=== PATIENT | male | born 1975 | race African-American/Black ===

== ENCOUNTER 2016-09-16 16:37 | Observation (INO) | payer OTHER ==
[~2016-09-16] VITALS: Ht 182.9 cm; Wt 93.4 kg
--- NOTE | ~2016-09-16 | CT4 ---
[facility]. [facility] A Service of [facility] RADIOLOGY TEXT RESULTS PATIENT: MAKENNA GALEAS LOCATION: [facility] 303- : 73 UNIT #: [id number] AGE: [address]: XI WHITTAKER MD SEX: M ORDER DR: [id number] [address] [address] [id number] E MR#: [id number] Acc #: [id number] NAME: MAKENNA GALEAS : 1975 SEX: M STUDY DATE/TIME: 09/16/2016 18:07 UNIT: SED ROOM: STUDY DESCRIPTION: CT Abd and Pelv Wo Cont Attending Physician: Higinio Byers M.D. Ordering Physician: Higinio Byers M.D. Primary Care Physician: No Primary Care Physician MEDICAL IMAGING REPORT This report is preliminary unless electronic signature is present. EXAM CT abdomen and pelvis. INDICATION Left-sided chest pain and left upper quadrant abdominal pain. Left lower quadrant pain. Nausea. TECHNIQUE CT of the abdomen and pelvis without contrast. Coronal and sagittal reconstructions were obtained. This CT exam was performed with one or more of the following radiation dose reduction techniques: automatic exposure control, adjustment of mA and/or kV according to patient size, and iterative reconstruction. COMPARISON None available. FINDINGS There is a small 1 mm calculus in the lower pole right kidney. No hydronephrosis. Noncontrast evaluation of the remaining solid abdominal organs is within normal. Gallbladder is not distended. The small bowel is not dilated. The appendix is normal. There is focal inflammation of the distal descending colon and an area of mild diverticulosis. This is indicative of diverticulitis. No abscess or perforation. The abdominal aorta is normal in caliber. There is a small umbilical hernia. PELVIS: No pelvic mass. Bladder is unremarkable. No enlarged pelvic or STS. [facility] A Service of [facility] RADIOLOGY TEXT RESULTS PATIENT: MAKENNA GALEAS LOCATION: [facility] 303- : 73 UNIT #: [id number] AGE: [address]: XI WHITTAKER MD SEX: M ORDER DR: inguinal lymph nodes. No acute osseous abnormalities. IMPRESSION 1. Acute diverticulitis of the descending colon. No abscess or perforation. 2. Right nephrolithiasis. 3. Small umbilical hernia. Dictated by... Shiva Willis M.D. THIS IS AN ELECTRONICALLY VERIFIED REPORT Shiva Willis M.D. at 09/17/2016 7:50 PM KIMI/josé TD: 09/17/2016 18:00 JOB #: [id number] MEDICAL IMAGING REPORT Page 1 of 1
--- NOTE | ~2016-09-16 | EKG ---
PATIENT: MAKENNA GALEAS UNIT #: [id number] Ventricular Rate: 66 BPM Atrial Rate: 66 BPM P-R Interval: 144 ms QRS Duration: 94 ms Q-T Interval: 388 ms QTC Calculation(Bezet): 406 ms P [place]: 96 degrees Calculated R [place]: 78 degrees Calculated T [place]: 37 degrees Diagnosis Line: Sinus rhythm with Premature atrial complexes Diagnosis Line: Otherwise normal ECG Diagnosis Line: No previous ECGs available Diagnosis Line: Confirmed by NICK KEITH MD ([id number]) on Diagnosis Line: 09/18/2016 3:09:26 PM INTERPRETING MD: SAGAR LINARES
--- NOTE | ~2016-09-16 | HP ---
Unit #: [id number] #: [id number] Patient: MAKENNA GALEAS [id number] [facility]. [place], [place] [address] [id number] I MR#: [id number] NAME: MAKENNA GALEAS. ROOM: 303 Age: 41 Sex: M Admission Date: 09/16/2016 : 1975 Attending Physician: Agapito Mota M.D. Primary Care Physician: Primary Care Physician No HISTORY AND PHYSICAL CHIEF COMPLAINT Abdominal pain. DISCUSSION This is a 41-year-old gentleman with past medical history of dyslipidemia, many years ago, not on any cholesterol medication. He presented to [facility] emergency room with chief complaint of having abdominal pain which mainly described in the left lower quadrant pain which pain started day before yesterday. He described the pain as sharp, progressively over time it got worse, today, he had been throwing up four or five times with nausea and vomiting. But said that he had been having some constipation but no diarrhea, no blood in stool. On workup, he was found to be white count 21,000. CT scan showed acute diverticulitis of descending colon and hematuria, admitted here. He denies fever, chills, chest pain, or any other complaint. PAST MEDICAL HISTORY History of dyslipidemia, while he was in the [employer], no on any medication. PAST SURGICAL HISTORY History of inguinal hernia repair while he was child, around the age of 7. SOCIAL HISTORY Smoked one pack every two days, and he used marijuana on daily basis, alcohol socially, denies any illicit drug use. HOME MEDICATIONS He does not take any medication at home. ALLERGIES No known drug allergies. FAMILY HISTORY Father from prostate cancer. Mother with history of diverticulitis. PHYSICAL EXAMINATION GENERAL: Ujymb-[id number]-vmvg-old gentleman lying in the bed comfortably. He is currently not in any distress asking for food. He is alert, awake, and oriented x3, comfortable, not in any distress. VITAL SIGNS: His vitals, initially, were the following, temperature is 98.6, heart rate 75, respiratory rate 20, and blood pressure 158/100. HEENT EXAMINATION: Pupils equal reactive to light and accommodation. Head: Normocephalic and atraumatic. NECK: Supple. No jugular venous distention. Unit #: [id number] #: [id number] Patient: MAKENNA GALEAS HEART: S1 and S2, regular rhythm. No murmur. No gallop. LUNGS: Clear to auscultation bilaterally. No rhonchi. No wheezing. ABDOMEN: Soft, positive left lower quadrant tenderness, no guarding, no rigidity. Bowel sounds are positive. EXTREMITIES: Inspection normal. No cyanosis, clubbing, or edema. NEUROLOGIC: No focal neurologic deficit. Cranial nerves II through XII intact. SKIN: Warm and dry. PSYCH: Normal in mood and affect. DIAGNOSTIC STUDIES LABORATORY: Laboratory workup is the following, INR is 1, chemistry sodium 138, potassium 4.1, chloride 99, glucose 118, BUN 14, creatinine of 1.1. LFT within normal limits. Troponin 0.05, white count is 21,000, and hemoglobin 17, hematocrit 40, platelets 197. IMAGING: CT scan of the abdomen shows acute diverticulitis of descending colon, small umbilical hernia, right nephrolithiasis. ASSESSMENT/PLAN 1. Acute diverticulitis of the descending colon, will keep the patient on thin liquid diet and start on IV Levaquin and IV fluids, IV Protonix, Zofran, pain control with morphine, ask GI, Dr. Anthony to evaluate. 2. Leukocytosis. 3. Small umbilical hernia on CT scan. 4. Right nephrolithiasis on CT scan. 5. History of dyslipidemia not on any medication. 6. Tobacco use and marijuana use. 7. DVT prophylaxis, will place the patient on Lovenox. Dictated by Efra Grider TD: 09/17/2016 09:33 JOB #: [id number] HISTORY AND PHYSICAL Page 1 of 1 X X HISTORY AND PHYSICAL
--- NOTE | ~2016-09-16 | CO ---
Unit #: [id number] #: [id number] Patient: MAKENNA GALEAS [id number] [address] [place], [place] [address] [id number] I MR#: [id number] NAME: MAKENNA GALEAS. ROOM: 303 Age: 41 Sex: M Admission Date: 09/16/2016 : 1975 Attending Physician: Zachary Milian M.D. Primary Care Physician: Primary Care Physician No Consultation Date: 09/18/2016 CONSULTATION REPORT REASON FOR CONSULTATION Sigmoid diverticulitis. HISTORY OF PRESENT ILLNESS Mr. 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 He ate intense pain while at work ended up going to the bathroom and subsequently had pain in the left lower quadrant of the abdomen associated with nausea and vomiting. The pain was quite intense. He says he has been constipated prior to all of this. There being no history of any hematochezia. On admission, he was found to have leukocytosis of 21,000 along with evidence of acute diverticulitis of the sigmoid and descending colon. There was no history of fever, chills, or rigors. PAST MEDICAL HISTORY Significant for history of hyperlipidemia. He is not take any medications for the latter. PAST SURGICAL HISTORY Include inguinal herniorrhaphy. SOCIAL HISTORY The patient smokes a pack of cigarette every couple of days and uses marijuana on a daily basis. Does not drink alcohol. HOME MEDICATIONS Does not take any home medication. BODY AFTER ALLERGIES No known drug allergies. BODY AFTER ALLERGIES FAMILY HISTORY Father apparently of prostate cancer. Mother had history of diverticulitis. REVIEW OF SYSTEMS Detailed review of organ systems does not reveal any recent weight loss. No history of fever, chills, or rigors. No history of headache, seizures, chest pain, or syncope. No history of cough, expectoration, or hemoptysis. No history of dysuria, hematuria, or pyuria. No history of focal seizures or extremity weakness. Rest of the review of organ system Unit #: [id number] #: [id number] Patient: MAKENNA GALEAS is unremarkable. PHYSICAL EXAMINATION GENERAL: He is alert and oriented, and comfortable. In fact, he feels a whole lot better after being given intravenous antibiotics in the hospital. VITAL SIGNS: Temperature is 97.5, pulse is 75 per minute and regular, respiratory rate is 18, and blood pressure is 122/77. He weighs 205 pounds and appears well nourished. HEENT: He has no pallor, icterus, lymphadenopathy, or peripheral edema. CARDIOVASCULAR: Normal heart sounds. No murmurs. LUNGS: Auscultation over the lungs reveal normal breath sounds. Good air entry. ABDOMEN: Soft. There being no area of localized tenderness, rigidity, rebound, or guarding. The patient was in fact exquisitely tender in the left lower quadrant of the abdomen when he came in. Bowel sounds normal. Hernia sites normal. DIAGNOSTIC STUDIES LABORATORY RESULTS: White count of 11,000 with a previous white count of 20,000 two days ago. Hemoglobin, hematocrit, and platelet counts are normal. INR is 1.0. Serum chemistry shows normal BUN and creatinine, and electrolytes. Normal LFTs. IMAGING STUDIES: CT scan of the abdomen shows acute diverticulitis of the descending colon without any microabscess formation as well as right nephrolithiasis. CLINICAL IMPRESSION The patient with resolving sigmoid diverticulitis. He has responded to IV antibiotics. Currently, he has no pain or tenderness in the abdomen. MANAGEMENT PLAN 1. Suggest advanced diet as tolerated. 2. The patient will be discharged home later today or tomorrow morning on oral antibiotics. Thank you very much for asking me to see this pleasant gentleman. I appreciate the consult. Dictated by... Efra Lovett/aviva TD: 09/18/2016 11:31 JOB #: [id number] CONSULTATION REPORT Page 1 of 1 X Florentino Anthony MD X CONSULTATION REPORT
--- NOTE | ~2016-09-16 | CR72 ---
[facility]. [facility] A Service of [facility] RADIOLOGY TEXT RESULTS PATIENT: MAKENNA GALEAS LOCATION: [facility] 303-01 : [birth year] UNIT #: [id number] AGE: [address]: XI WHITTAKER MD SEX: M ORDER DR: [id number] E MR#: [id number] Acc #: [id number] NAME: MAKENNA GALEAS : 1975 SEX: M STUDY DATE/TIME: 09/16/2016 18:11 UNIT: SED ROOM: STUDY DESCRIPTION: CR Chest Single View Portable Attending Physician: Higinio Byers M.D. Ordering Physician: Higinio Byers M.D. Primary Care Physician: No Primary Care Physician MEDICAL IMAGING REPORT This report is preliminary unless electronic signature is present. EXAM Single view chest. INDICATIONS Chest pain and shortness of air. Vomiting. FINDINGS Single portable AP view of the chest compared to 10/10/2013. The heart and mediastinal contours normal. No focal airspace opacity. No pneumothorax or pleural effusion. IMPRESSION No acute cardiopulmonary findings. Dictated by... Shiva Willis M.D. THIS IS AN ELECTRONICALLY VERIFIED REPORT Shiva Willis M.D. at 09/17/2016 7:50 PM KIMI/debbie TD: 09/17/2016 18:05 JOB #: [id number] MEDICAL IMAGING REPORT Page 1 of 1
--- NOTE | ~2016-09-16 | DS ---
Unit #: [id number] #: [id number] Patient: MAKENNA GALEAS [id number] [address] [address] [id number] I MR#: [id number] NAME: MAKENNA GALEAS. ROOM: 303 Age: 41 Sex: M Admission Date: 09/16/2016 : 1975 Discharge Date: 09/18/2016 Attending Physician: Zachary Milian M.D. Primary Care Physician: No Primary Care Physician DISCHARGE SUMMARY DISCHARGE DIAGNOSIS Diverticulitis. HOSPITAL COURSE The patient is a 41-year-old male who presented to [facility] emergency department with a complaint of abdominal pain. It was sharp and had been associated with nausea and vomiting. CT scan showed acute diverticulitis of the descending colon. The patient was admitted and started on IV antibiotics, which included Levaquin and Flagyl. The patient feels much better at this time and is tolerating a diet and is being discharged home to continue these medications orally. DISCHARGE MEDICATIONS 1. Levaquin 500 mg p.o. daily. 2. Flagyl 500 mg p.o. t.i.d. FOLLOWUP The patient should follow up with primary care physician as needed at the end of his antibiotic course. DIET As tolerated. Dictated by... Efra Perdomo/ashlie TD: 09/19/2016 10:26 JOB #: [id number] Unit #: [id number] #: [id number] Patient: MAKENNA GALEAS DISCHARGE SUMMARY Page 1 of 1 X Zachary Milian MD X DISCHARGE SUMMARY
[2016-09-16 17:15] LABS: BASOPHIL# 0.1 X10e3 (0-0.3); BASOPHIL% 0.3 % (0-2.5); EOSINOPHIL# 0.1 X10e3 (0-0.7); EOSINOPHIL% 0.5 % (0.0-7.0); HEMATOCRIT 50.9 % (38.0-50.0); HEMOGLOBIN 17.2 gm/dL (13.0-16.0); LYMPHOCYTE# 1.2 X10e3 (1.0-3.5); LYMPHOCYTE% 5.5 % (17.0-45.0); MEAN CELL VOLUME 87.9 FL (83-96); MEAN CORPUSCULAR HEMOGLOBIN 29.7 PG (28-34); MEAN CORPUSCULAR HGB CONC 33.8 g/dL (30-36); MEAN PLATELET VOLUME 9.4 FL (6.5-11.5); MONOCYTE# 0.9 X10e3 (0-1.0); NEUTROPHIL# 19.6 X10e3 (1.5-7.1); NEUTROPHIL% 89.7 % (40-75); PLATELET COUNT 197 X10e3 (140-420); RED CELL DISTRIBUTION WIDTH 14.9 % (11.0-15.5); WHITE BLOOD COUNT 21.8 X10e3 (4.0-10.5)
[2016-09-16 17:25] LABS: DIFF IND NO
[2016-09-16 17:28] LABS: POC - CKMB 1.8 ng/mL (0.0-7.9); POC - TROPONIN <0.05 ng/mL (<=0.05)
[2016-09-16 17:39] LABS: BILIRUBIN,TOTAL 1.1 mg/dL (0.2-2.0); BUN/CREATININE RATIO 12.72; CALCIUM SERUM 9.6 mg/dL (8.4-10.2); CREATININE SERUM 1.1 mg/dL (0.6-1.4); GLOM FILT RATE Estimated 94.8 mL/min (>60); POTASSIUM 4.1 mmol/L (3.5-5.1); PROTEIN TOTAL SERUM 8.3 g/dL (6.0-8.3)
[2016-09-16 17:40] LABS: PROTHROMBIN TIME (PATIENT) 11.8 SECONDS (9.5-12.4)
[2016-09-16 17:47] LABS: PARTIAL THROMBOPLASTIN TIME 28.6 SECONDS (25.6-38.1)
[2016-09-17 05:29] LABS: HEMATOCRIT 45.7 % (38.0-50.0); HEMOGLOBIN 15.3 gm/dL (13.0-16.0); MEAN CORPUSCULAR HEMOGLOBIN 29.5 PG (28-34); MEAN CORPUSCULAR HGB CONC 33.5 g/dL (30-36); MEAN PLATELET VOLUME 9.2 FL (6.5-11.5); RED BLOOD COUNT 5.19 X10e (3.90-5.60); RED CELL DISTRIBUTION WIDTH 14.9 % (11.0-15.5); WHITE BLOOD COUNT 18.8 X10e3 (4.0-10.5)
[2016-09-17 05:50] LABS: BUN/CREATININE RATIO 11.81; CALCIUM SERUM 8.6 mg/dL (8.4-10.2); CREATININE SERUM 1.1 mg/dL (0.6-1.4); GLOM FILT RATE Estimated 94.8 mL/min (>60); POTASSIUM 3.7 mmol/L (3.5-5.1)
[2016-09-18 06:13] LABS: BASOPHIL# 0.1 X10e3 (0-0.3); BASOPHIL% 0.5 % (0-2.5); EOSINOPHIL# 0.1 X10e3 (0-0.7); EOSINOPHIL% 0.8 % (0.0-7.0); HEMATOCRIT 42.9 % (38.0-50.0); HEMOGLOBIN 14.4 gm/dL (13.0-16.0); LYMPHOCYTE# 1.9 X10e3 (1.0-3.5); LYMPHOCYTE% 16.9 % (17.0-45.0); MEAN CELL VOLUME 87.9 FL (83-96); MEAN CORPUSCULAR HEMOGLOBIN 29.4 PG (28-34); MEAN CORPUSCULAR HGB CONC 33.5 g/dL (30-36); MEAN PLATELET VOLUME 8.6 FL (6.5-11.5); MONOCYTE# 0.8 X10e3 (0-1.0); MONOCYTE% 7.5 % (3.0-12.0); NEUTROPHIL# 8.4 X10e3 (1.5-7.1); NEUTROPHIL% 74.3 % (40-75); PLATELET COUNT 164 X10e3 (140-420); RED BLOOD COUNT 4.88 X10e (3.90-5.60); RED CELL DISTRIBUTION WIDTH 14.6 % (11.0-15.5); WHITE BLOOD COUNT 11.3 X10e3 (4.0-10.5)
[2016-09-18 06:22] LABS: DIFF IND NO
[2016-09-18 06:40] LABS: BUN/CREATININE RATIO 10.83; CALCIUM SERUM 8.6 mg/dL (8.4-10.2); CREATININE SERUM 1.2 mg/dL (0.6-1.4); GLOM FILT RATE Estimated 85.3 mL/min (>60); POTASSIUM 3.9 mmol/L (3.5-5.1)
[2016-09-18] MEDS ORDERED: LEVAQUIN PO (13:16)
[2016-09-18] MEDS ORDERED: FLAGYL PO (13:16)
== END 2016-09-18 14:55 | disposition home or self-care (01) | DRG 392 ==
LOC: SED 16:37 → C3A PCU 19:31 → CEDOF 19:31 → C3A PCU 19:31
PROVIDERS: Emergency Medicine; Internal Medicine; Internal Medicine Endocrinology, Diabetes & Metabolism
DX: K57.32 Diverticulitis of large intestine without perforation or abscess without bleeding (principal); F17.210 Nicotine dependence, cigarettes, uncomplicated; K42.9 Umbilical hernia without obstruction or gangrene; N20.0 Calculus of kidney; F12.90 Cannabis use, unspecified, uncomplicated; Z79.899 Other long term (current) drug therapy
CPT/HCPCS: 71010; 74176; 80048; 80053; 82553; 84484; 85025; 85027; 85610; 85730; 93005; 96361; 96365; 96366; 96367; 96375; 96376; 99285; C9113; G0378; J1650; J1956; J2270; J2405; J2543